=== PATIENT | female | born 1940 | race Hispanic/Latino ===

== ENCOUNTER 2018-04-12 12:42 | Emergency (ER) | payer MEDICARE, OTHER ==
[2018-04-12] MEDS ORDERED: Sodium Chloride 0.9% 1,000 ML IV ONE (13:23)
[2018-04-12] MEDS ORDERED: Sodium Chloride 0.9% 1,000 ML ONE (13:35)
[2018-04-12 13:41] LABS: BASO # 0.1 K/uL (0.0-0.2); BASO % 0.8 % (0.0-2.0); EOS # 0.3 K/uL (0.0-0.7); EOS % 2.2 % (0.0-4.0); LYMPH # 2.8 K/uL (1.0-4.3); LYMPH % 19.6 % (20.0-40.0); MEAN CELL VOLUME 89.3 fL (81.0-99.0); MEAN CORPUSCULAR HGB CONC 33.6 g/dL (33.0-37.0); MEAN PLATELET VOLUME 8.1 fL (7.2-11.7); MONO # 1.2 K/uL (0.0-0.8); MONO % 8.1 % (0.0-10.0); NEUT % 69.3 % (50.0-75.0); RBC 4.34 Mil/uL (3.80-5.20); RED CELL DISTRIBUTION WIDTH 14.9 % (11.5-14.5); WHITE BLOOD COUNT 14.5 K/uL (4.8-10.8)
[2018-04-12 13:48] LABS: SQUAMOUS EPITHIAL 1 /hpf (0-5); URINE BILIRUBIN NEGATIVE (NEGATIVE); URINE BLOOD NEGATIVE (NEGATIVE); URINE CLARITY Clear (Clear); URINE COLOR Yellow (YELLOW); URINE GLUCOSE (UA) NORMAL (Normal); URINE LEUKOCYTE ESTERASE TRACE Leu/uL (Negative); URINE PROTEIN 1+ mg/dL (NEGATIVE); URINE UROBILINOGEN NORMAL mg/dL (0.2-1.0)
[2018-04-12 13:57] LABS: BLOOD UREA NITROGEN 28 mg/dL (7-17); CALCIUM 9.8 mg/dl (8.6-10.4); GFR NON-AFRICAN AMERICAN > 60; LIPASE 46 U/L (23-300)
[2018-04-12 13:58] LABS: ALB/GLOB RATIO 1.4 (1.0-2.1); ALBUMIN 4.5 g/dL (3.5-5.0); ALT/SGPT 17 U/L (9-52); AST/SGOT 64 U/L (14-36)
[2018-04-12] MEDS ORDERED: Iodixanol 320 MG/ML 100 ML BOTTLE IV ONE (14:38)
--- NOTE | 2018-04-12 15:21 | CT ---
Date of service: 04/12/2018 PROCEDURE: CT HEAD WITHOUT CONTRAST. HISTORY: r/o ICH COMPARISON: None available. TECHNIQUE: Axial computed tomography images were obtained through the head/brain without intravenous contrast. Radiation dose: Total exam DLP = 1067.12 mGy-cm. This CT exam was performed using one or more of the following dose reduction techniques: Automated exposure control, adjustment of the mA and/or kV according to patient size, and/or use of iterative reconstruction technique. FINDINGS: HEMORRHAGE: No intracranial hemorrhage. BRAIN: Good corticomedullary differentiation is seen. Proportional, diffuse expansion of the ventriculosulcal and cisternal spaces is appreciated with white matter lucency compatible with diffuse cerebral atrophy and chronic microangiopathy. No suspicious extra-axial fluid collection is identified and the midline brain anatomy appears grossly nonfocal as imaged. There is no mass effect throughout. VENTRICLES: Cavum septum pellucidum vergae, a normal variant. No hydrocephalus. CALVARIUM: No destructive bony lesion or displaced fracture identified including through the skullbase. PARANASAL SINUSES: Multifocal sinusitis changes are identified. MASTOID AIR CELLS: Unremarkable as visualized. No inflammatory changes. OTHER FINDINGS: None. IMPRESSION: Mild age related neuro degenerative findings are identified without acute intracranial changes by standard CT criteria.
[2018-04-12 15:33] VITALS: BP 149/85; PULSE 82; RESP 20; TEMP 97.9; O2SAT 98
--- NOTE | 2018-04-12 15:39 | CT ---
Date of service: 04/12/2018 PROCEDURE: CT Abdomen and Pelvis with contrast HISTORY: upper abdominal pain COMPARISON: None. TECHNIQUE: Following the intravenous administration of iodinated contrast material, a CT examination of the abdomen and pelvis performed from the domes of the diaphragms to the symphysis pubis with reformatted datasets provided in axial, sagittal and coronal planes. Oral contrast was not administered as per referring physician request. Coronal and sagittal reformats were generated. contrast dose: Visipaque 320, 100 cc Radiation dose: Total exam DLP = 398.52 mGy-cm. This CT exam was performed using one or more of the following dose reduction techniques: Automated exposure control, adjustment of the mA and/or kV according to patient size, and/or use of iterative reconstruction technique. FINDINGS: LOWER THORAX: Calcified granuloma right lower lobe. Nodular infiltrates right lower lobe as well with none on the left. Clinically correlate further. No pleural pericardial effusion. Cardiomegaly noted. Small hiatal hernia identified as well. LIVER: Diminished attenuation of the liver is compatible hepatic steatosis. Mildly elevated right hemidiaphragm noted. No patent mass or definite intrahepatic biliary dilatation identified. GALLBLADDER AND BILE DUCTS: Unremarkable. PANCREAS: Unremarkable. No gross lesion or ductal dilatation. SPLEEN: Unremarkable. ADRENALS: Unremarkable. No mass. KIDNEYS AND URETERS: Limited cortical loss in the right kidney compatible with multiple focal chronic infarcts. None is seen at the left kidney. No obstructive uropathy bilaterally. Mildly prominent right extrarenal pelvis present. VASCULATURE: Nonaneurysmal abdominal aortic calcific atherosclerotic changes are identified. BOWEL: Stomach is collapsed. There is relatively extensive left colonic diverticular disease without diverticulitis. Xrke-do-[id number] fecal loading scattered throughout the large bowel. APPENDIX: No CT evidence of appendicitis. PERITONEUM: Unremarkable. No free fluid. No free air. LYMPH NODES: Unremarkable. No enlarged lymph nodes. BLADDER: Distended but smooth and thin walled urinary bladder. REPRODUCTIVE: Unremarkable. BONES: Posterior L4-5 fusion by transpedicular screws and interconnecting rods identified. Further, an epidural stimulator is identified placed with generator at the mid lumbar subcutaneous fat and 2 leads entering into the epidural space at the L1-2 level terminating at the T9 epidural space. Grade 1 retrolisthesis L1-2, minimal. OTHER FINDINGS: None. IMPRESSION: 1. Hepatic steatosis without discrete cyst or solid mass appreciable. Gallbladder appears unremarkable. 2. Extensive left colonic diverticular changes without diverticulitis. 3. No definite obstructive uropathy. Multiple right renal cortical infarcts identified. 4. Lumbar spinal fusion. Thoracic epidural stimulator. 5. Incidental right lower lobe nodular infiltrate, mild. Calcified granuloma right lower lobe as well.
--- NOTE | 2018-04-12 16:26 | RAD ---
Date of service: 04/12/2018 PROCEDURE: CHEST RADIOGRAPH, 1 VIEW HISTORY: abd pain COMPARISON: None available. FINDINGS: LUNGS: No interval pulmonary disease appreciated bilaterally. PLEURA: No pneumothorax or pleural fluid seen. CARDIOVASCULAR: Borderline cardiomegaly. No pulmonary vascular congestion evident. OSSEOUS STRUCTURES: Advanced degenerative changes seen the bilateral shoulders. Epidural stimulator leads identified terminating at the inferior thoracic spine region. VISUALIZED UPPER ABDOMEN: Normal. OTHER FINDINGS: None. IMPRESSION: Borderline cardiomegaly. No pulmonary vascular congestion. No acute pulmonary disease. Epidural stimulator leads identified at thoracic spine incidentally.
--- NOTE | 2018-04-12 17:15 | C.PDOC ---
History Of Present Illness 77 y/o female pt presents to the ED with c/o upper abdominal pain associated with constipation. Pt reports she is eating well and is on narcotics for her chronic back pain as well as stool softener. Pt did not take any medication tod ay including her HTN medication. Pt denies chest pain, SOB, fever, nausea and vomiting. Chief Complaint (Nursing): Abdominal Pain History Per: Patient History/Exam Limitations: no limitations Onset/Duration Of Symptoms: Days Current Symptoms Are (Timing): Still Present Past Medical History Reviewed: Historical Data, Nursing Documentation, Vital Signs Vital Signs: Last Vital Signs Temp 97.9 F 04/12/18 15:32 Pulse 82 04/12/18 15:32 Resp 20 04/12/18 15:32 BP 149/85 04/12/18 15:32 Pulse Ox 98 04/12/18 15:32 - Medical History PMH: Arthritis, Asthma, Depression, HTN, Hypercholesterolemia Surgical History: Appendectomy, Back Surgery - [facility] Procedures INJECT/INFUSE NEC (08/31/14) PHYSICAL THERAPY NEC (11/16/14) Family History: States: Unknown Family Hx - Social History Hx Alcohol Use: No Hx Substance Use: No Review Of Systems Except As Marked, All Systems Reviewed And Found Negative. Constitutional: Positive for: Other (eats well ). Negative for: Fever Cardiovascular: Negative for: Chest Pain Respiratory: Negative for: Shortness of Breath Gastrointestinal: Positive for: Abdominal Pain, Constipation. Negative for: Nausea, Vomiting Physical Exam - Physical Exam Appears: Well, Non-toxic, No Acute Distress Skin: Normal Color, Warm, Dry Head: Normacephalic Eye(s): bilateral: Normal Inspection, EOMI Chest: Symmetrical, No Deformity Cardiovascular: Rhythm Regular Respiratory: Normal Breath Sounds Gastrointestinal/Abdominal: Soft, Tenderness (mild upper abdominal tenderness) Back: No CVA Tenderness Extremity: Normal ROM (x4) Neurological/Psych: Oriented x3, Normal Speech ED Course And Treatment - Laboratory Results Result Diagrams: 04/12/18 13:37 04/12/18 13:37 ECG: Interpreted By Me, Viewed By Me ECG Rhythm: Sinus Rhythm ECG Interpretation: Normal, No Acute Changes Rate From EC O2 Sat by Pulse Oximetry: 98 (RA) Pulse Ox Interpretation: Normal - Other Rad chest X-Ray: Read By Radiologist Interpretation: Accession No. : [id number]. Patient Name / ID : KARISSA Gutierrez / [id number]. Exam Date : 04/12/2018 13:33:14 ( Approved ). Study Comment : Sex / Age : F / 77Y. Creator : Niko Talbot MD. Dictator : Niko Talbot MD. Physical Therapist Technician : Wheelchair Van Operator First Responder : Niko Talbot MD. Approver2 : Report Date : 04/12/2018 16:22:37. My Comment : . Date of service: 04/12/2018. PROCEDURE: CHEST RADIOGRAPH, 1 VIEW. HISTORY: abd pain. COMPARISON: None available. FINDINGS: LUNGS: No interval pulmonary disease appreciated bilaterally. PLEURA: No pneumothorax or pleural fluid seen. CARDIOVASCULAR: Borderline cardiomegaly. No pulmonary vascular congestion evident. OSSEOUS STRUCTURES: Advanced degenerative changes seen the bilateral shoulders. Epidural stimulator leads identified terminating at the inferior thoracic spine region. VISUALIZED UPPER ABDOMEN: Normal. OTHER FINDINGS: None. IMPRESSION: Borderline cardiomegaly. No pulmonary vascular congestion. No acute pulmonary disease. Epidural stimulator leads identified at thoracic spine incidentally. - CT Scan/US head Other Rad Studies (CT/US): Read By Radiologist, Radiology Report Reviewed CT/US Interpretation: Accession No. : [id number]. Patient Name / ID : KARISSA Gutierrez / [id number]. Exam Date : 04/12/2018 14:47:07 ( Approved ). Study Comment : Sex / Age : F / 77Y. Creator : Niko Talbot MD. Dictator : Niko Talbot MD. Physical Therapist Technician : Wheelchair Van Operator First Responder : Niko Talbot MD. Approver2 : Report Date : 04/12/2018 15:18:13. My Comment : . Date of service: 04/12/2018. PROCEDURE: CT HEAD WITHOUT CONTRAST. HISTORY: r/o ICH. COMPARISON: None available. TECHNIQUE: Axial computed tomography images were obtained through the head/brain without intravenous contrast. Radiation dose: Total exam DLP = 1067.12 mGy-cm. This CT exam was performed using one or more of the following dose reduction techniques: Automated exposure control, adjustment of the mA and/or kV according to patient size, and/or use of iterative reconstruction technique. FINDINGS: HEMORRHAGE: No intracranial hemorrhage. BRAIN: Good corticomedullary differentiation is seen. Proportional, diffuse expansion of the ventriculosulcal and cisternal spaces is appreciated with white matter lucency compatible with diffuse cerebral atrophy and chronic microangiopathy. No suspicious extra-axial fluid collection is identified and the midline brain anatomy appears grossly nonfocal as imaged. There is no mass effect throughout. VENTRICLES: Cavum septum pellucidum vergae, a normal variant. No hydrocephalus. CALVARIUM: No destructive bony lesion or displaced fracture identified including through the skullbase. PARANASAL SINUSES: Multifocal sinusitis changes are identified. MASTOID AIR CELLS: Unremarkable as visualized. No inflammatory changes. OTHER FINDINGS: None. IMPRESSION: Mild age related neuro degenerative findings are identified without acute intracranial changes by standard CT criteria. Abd&pelvis Other Rad Studies (CT/US): Read By Radiologist, Radiology Report Reviewed CT/US Interpretation: Accession No. : [id number]. Patient Name / ID : KARISSA Gutierrez / [id number]. Exam Date : 04/12/2018 14:55:21 ( Approved ). Study Comment : Sex / Age : F / 77Y. Creator : Domi Acharya. Dictator : Niko Talbot MD. Physical Therapist Technician : Wheelchair Van Operator First Responder : Niko Talbot MD. Approver2 : Report Date : 04/12/2018 15:01:04. My Comment : *. Date of service: 04/12/2018. PROCEDURE: CT Abdomen and Pelvis with contrast. HISTORY: upper abdominal pain. COMPARISON: None. TECHNIQUE: Following the intravenous administration of iodinated contrast material, a CT examination of the abdomen and pelvis performed from the domes of the diaphragms to the symphysis pubis with reformatted datasets provided in axial, sagittal and coronal planes. Oral contrast was not administered as per referring physician request. Coronal and sagittal reformats were generated. contrast dose: Visipaque 320, 100 cc. Radiation dose: Total exam DLP = 398.52 mGy-cm. This C T exam was performed using one or more of the following dose reduction techniques: Automated exposure control, adjustment of the mA and/or kV according to patient size, and/or use of iterative reconstruction technique. FINDINGS: LOWER THORAX: Calcified granuloma right lower lobe. Nodular infiltrates right lower lobe as well with none on the left. Clinically correlate further. No pleural pericardial effusion. Cardiomegaly noted. Small hiatal hernia identified as well. LIVER: Diminished attenuation of the liver is compatible hepatic steatosis. Mildly elevated right hemidiaphragm noted. No patent mass or definite intrahepatic biliary dilatation identified. GALLBLADDER AND BILE DUCTS: Unremarkable. PANCREAS: Unremarkable. No gross lesion or ductal dilatation. SPLEEN: Unremarkable. ADRENALS: Unremarkable. No mass. KIDNEYS AND URETERS: Limited cortical loss in the right kidney compatible with multiple focal chronic infarcts. None is seen at the left kidney. No obstructive uropathy bilaterally. Mildly prominent right extrarenal pelvis present. VASCULATURE: Nonaneurysmal abdominal aortic calcific atherosclerotic changes are identified. BOWEL: Stomach is collapsed. There is relatively extensive left colonic diverticular disease without diverticulitis. Recb-[id number] fecal loading scattered throughout the large bowel. APPENDIX: No CT evidence of appendicitis. PERITONEUM: Unremarkable. No free fluid. No free air. LYMPH NODES: Unremarkable. No enlarged lymph nodes. BLADDER: Distended but smooth and thin walled urinary bladder. REPRODUCTIVE: Unremarkable. BONES: Posterior L4-5 fusion by transpedicular screws and interconnecting rods identif ied. Further, an epidural stimulator is identified placed with generator at the mid lumbar subcutaneous fat and 2 leads entering into the epidural space at the L1-2 level terminating at the T9 epidural space. Grade 1 retrolisthesis L1-2, minimal. OTHER FINDINGS: None. IMPRESSION: 1. Hepatic steatosis without discrete cyst or solid mass appreciable. Gallbladder appears unremarkable. 2. Extensive left colonic diverticular changes without diverticulitis. 3. No definite obstructive uropathy. Multiple right renal cortical infarcts identified. 4. Lumbar spinal fusion. Thoracic epidural stimulator. 5. Incidental right lower lobe nodular infiltrate, mild. Calcified granuloma right lower lobe as well. Medical Decision Making Medical Decision Making: Impression: upper abdominal pain with constipation Plans: -- CT abd and pelvis -- CT head -- Chem labs -- blood work -- CXR -- Norvasc -- pepcid -- IV fluids -- tylenol -- zofran -- UCX -- UA Reassess: medication HTN was given with positive results. Pt feels better and was given instructions for f/u. Disposition - Disposition Referrals: [facility] Kalie Johnson, [Non-Staff] - Disposition: HOME/ ROUTINE Disposition Time: 15:45 Condition: IMPROVED Additional Instructions: MELINA HANCOCK, thank you for letting us take care of you today. Your provider was Niko Skinner DO and you were treated for ABD PAIN. The emergency medical care you received today was directed at your acute symptoms. If you were prescribed any medication, please fill it and take as directed. It may take several days for your symptoms to resolve. Return to the Emergency Department if your symptoms worsen, do not improve, or if you have any other problems. Please contact your doctor or call one of the physicians/clinics you have been referred to that are listed on the Patient Visit Information form that is included in your discharge packet. Bring any paperwork you were given at discharge with you along with any medications you are taking to your follow up visit. Our treatment cannot replace ongoing medical care by a primary care provider outside of the emergency department. Thank you for allowing the [facility] team to be part of your care today. Please take all your medication as prescribed everyday. Follow up with your primary care doctor in 2-3 days for re-evaluation and further management. Prescriptions: Docusate [Colace] 100 mg PO Q8 PRN #20 cap PRN Reason: Constipation Instructions: Constipation, Adult (DC) Forms: [employer] (Algerian) - Clinical Impression Clinical Impression: Abdominal pain - Scribe Statement The provider has reviewed the documentation as recorded by the Scribe Aguilar Do Provider Attestation: All medical record entries made by the Scribe were at my direction and personally dictated by me. I have reviewed the chart and agree that the record accurately reflects my personal performance of the history, physical exam, medical decision making, and the department course for this patient. I have also personally directed, reviewed, and agree with the discharge instructions and disposition.
--- NOTE | 2018-04-14 12:52 | CARD ---
APPROVED REPORT Date of service: 04/12/2018 EKG Measurement Heart [id number] <Conclusion> Normal sinus rhythm Normal ECG
== END 2018-04-12 16:33 | disposition home or self-care (01) ==
LOC: C.ER 12:42
DX: R10.10 Upper abdominal pain, unspecified (principal); I10 Essential (primary) hypertension
CPT/HCPCS: 70450; 71045; 74177; 80053; 81001; 83690; 84484; 85025; 87086; 93005; 96361; 96374; 96375; 99285; J2405; J7030; Q9967